=== PATIENT | male | born 1940 | race Caucasian/White ===

== ENCOUNTER 2016-11-03 04:25 | Inpatient (IN) | payer MEDICARE, OTHER ==
--- NOTE | ~2016-11-03 | HP ---
History And Physical [address] [place]. [address] NAME: GAYLE CLARK : 42 STATUS : ADM Camacho PAT#: [id number] AGE: 76 ADM/REG DATE : 11/03/16 MR#: [id number] REPORT SERV DATE: 11/03/16 DICTATED BY: LALITA SMITH DATE: 11/03/16 REPORT STATUS : Draft TRANSCRIBED BY: MODL DATE: 11/03/16 DATE OF ADMISSION: 11/03/2016 CHIEF COMPLAINT: Chest pain. HISTORY OF PRESENT ILLNESS: The patient is a 76-year-old male with known coronary artery disease with previous cardiac stenting, who presented to the emergency department with complaints of chest discomfort earlier in the day. He presented to the wee hours of the following morning. His initial EKG was unremarkable with no significant ST elevation or depression. Several hours later, the patient began to experience more severe chest discomfort. A repeat EKG was performed, which demonstrated marked inferior ST-segment elevation. The Code STEMI protocol was activated and the patient was brought emergently to cardiac catheterization laboratory. Prior to transfer, the patient received aspirin and intravenous heparin bolus. By the time of arrival in the catheterization laboratory, the patient had resolution of his chest discomfort. PAST MEDICAL HISTORY: 1. Coronary artery disease with previous stenting to diagonal branch of LAD and reportedly to PDA of RCA. 2. COPD. 3. Peripheral arterial disease - specifics unknown. 4. Obstructive sleep apnea, on CPAP. 5. Hypertension. 6. Hyperlipidemia. 7. Paroxysmal atrial fibrillation. 8. Chronic anticoagulation secondary to paroxysmal atrial fibrillation. 9. Chronic kidney disease. 10.Remote history of pulmonary embolism. ALLERGIES: TO PIPERACILLIN. SOCIAL HISTORY: Denies tobacco use for the last fourteen years. Prior to that time, smoked less than a pack of cigarettes per day for approximately forty years. Denies alcohol or illicit drug use. FAMILY HISTORY: Noncontributory. REVIEW OF SYSTEMS: Negative for all organ systems except per the history of present illness. PHYSICAL EXAMINATION: VITALS: Blood pressure 168/88, pulse 84, respirations 16 and unlabored. Weight 205 pounds. GENERAL: Elderly male in mild distress secondary to chest discomfort. HEENT: Normal. NECK: Supple, no JVD or bruit, normal carotid upstroke bilaterally, no thyromegaly. LUNGS: Clear to auscultation and percussion. No wheezes, rales or rhonchi. No use of History And Physical [address] [address] NAME: GAYLE CLARK : 42 STATUS : ADM Camacho PAT#: [id number] AGE: 76 ADM/REG DATE : 11/03/16 MR#: [id number] REPORT SERV DATE: 11/03/16 DICTATED BY: LALITA SMITH DATE: 11/03/16 REPORT STATUS : Draft TRANSCRIBED BY: JULITO DATE: 11/03/16 accessory muscles. CARDIOLOGY: Regular rhythm, normal S1, S2, no thrill, no murmur, rubs or gallops, normal PMI. ABDOMEN: Bowel sounds positive, soft, nontender, and nondistended. No masses or aortic bruits. No hepatosplenomegaly or hepatojugular reflux. EXTREMITIES: No edema. Normal pulses. No clubbing or cyanosis. SKIN: Warm and dry, no significant rash. NEUROLOGIC: Alert and oriented x 3. Appropriate mood. EKG: Initial electrocardiogram on presentation in the emergency department, sinus rhythm. Otherwise, unremarkable. Subsequent EKG this morning with [address]-segment elevation in the inferior leads consistent with acute inferior wall ST-segment elevation myocardial infarction, the underlying rhythm, sinus. LABORATORIES: Initial troponin negative. Creatinine 1.6 and otherwise no significant abnormalities. IMPRESSION: Acute inferior wall ST-segment elevation myocardial infarction. The patient is received emergently cardiac catheterization laboratory for angiography and intervention as indicated. See details of catheterization and intervention under separate report. In summary, the patient was found to have a flow limiting lesions in the proximal RCA and proximal posterior descending artery of the RCA. Underwent stenting with a total of three drug-eluting stents, two to the PDA, and one to the proximal RCA. No complications during the procedure. The patient was admitted to Cardiac Intensive Care Unit for post myocardial infarction management. BRYSON/JULITO Polly Smith M.D. / [id number] CC: Reta Perry, MSN, PAYABLE REPRESENTATIVE-BC
[2016-11-03 03:51] LABS: BASOPHILS 0.1 %; BASOPHILS ABSOLUTE 0.01 10/3/uL (0.0-0.16); EOSINOPHILS 4.6 %; EOSINOPHILS ABSOLUTE 0.45 10/3/uL (0.0-0.53); ER CBC TAT 0 Hrs 02 Mins; HEMATOCRIT 44.3 % (40.0-51.0); HEMOGLOBIN 15.3 g/dL (13.6-17.8); IMMATURE GRANULOCYTES 0.6 %; IMMATURE GRANULOCYTES ABSOLUTE 0.06 10/3/uL (0.0-0.11); LYMPHOCYTES 12.4 %; LYMPHOCYTES ABSOLUTE 1.21 10/3/uL (0.67-4.30); MEAN CORPUS HGB CONC 34.5 g/dL (32.0-36.0); MEAN CORPUSCULAR HEMOGLOB 32.8 pg (26.0-34.0); MEAN CORPUSCULAR VOLUME 95.1 fL (80-100); MEAN PLATELET VOLUME 9.4 fL (9.2-13.0); MONOCYTES 7.6 %; MONOCYTES ABSOLUTE 0.74 10/3/uL (0.21-1.20); NEUTROPHILS 74.7 %; NEUTROPHILS ABSOLUTE 7.29 10/3/uL (2.02-8.40); PLATELET COUNT 219 10/3/uL (150-400); RBC DISTRIBUTION WIDTH 12.5 % (12.0-16.0); RED CELL COUNT 4.66 10/6/uL (4.7-6.1); WHITE BLOOD CELLS 9.8 10/3/uL (4.5-10.5)
[2016-11-03 03:52] LABS: MANUAL DIFF NO %
[2016-11-03 03:59] LABS: INTERNATIONAL NORMAL RATI 2.3 UNITS (-); PARTIAL THROMBO TIME 36.4 SEC (22.5-37.2)
[2016-11-03 04:08] LABS: BUN (BLOOD UREA NITROGEN) 24 MG/DL (6-23); CALCIUM, SERUM 8.1 MG/DL (8.5-10.4); CHEST PAIN PROFILE TAT 0 Hrs 19 Mins; CHLORIDE, SERUM 108 MMOL/L (96-112); CO2 (CARBON DIOXIDE) 30 MMOL/L (24-34); CREATININE 1.68 MG/DL (0.70-1.30); GFR AFRICAN AMERICAN 46 ML/MIN (>=60); GFR NON AFRICAN AMERICAN 39 ML/MIN (>=60); GLUCOSE, SERUM 126 MG/DL (60-99); POTASSIUM, SERUM 4.1 MMOL/L (3.5-5.3); SODIUM, SERUM 138 MMOL/L (135-148); TROPONIN I 0.14 NG/ML (<0.05)
[~2016-11-03 04:25] MED LIST: AMIT100 PO; AMIT50 PO; AMITRIPTYLIN150 MG PO; ASA5GR PO; ASAB PO; C5 PO; COREG25 PO; COUMADIN3 MG PO; FLAG500TAB PO; FLEX PO; IMDUR30 PO; ISOSORB DIN30 MG PO; KLONO1 PO; KLOR-CON 1010 MEQ PO; L20 PO; LAN125 PO; LEXAPRO5 MG PO; LINZESS 290 M290 MCG PO; LOP25 PO; LORTAB 5 PO; LOVENOX; METAMUCIL CAN7 OZ PO; MEVACOR40 MG PO; NEXIUM40 PO; NIACIN 500 PO; NIACIN TR1000 MG PO; NIACOR500 MG PO; NITROQUICK0.4 MG SL; NORV5 PO; P20 PO; PLAVIX PO; PRAVACHOL40 MG PO; PRIN10 PO; RANITIDINE300 MG PO; SKELAXIN8 PO; SLO-NIACIN500 MG PO; SPIRIVA INH; SYSTANE OP; TRAZ100 PO; TRAZ50 PO; VANCOCIN HCL125 MG PO; VENTOLIN HFA INH; VITAMIN B-121000 MC1 SL; VITAMIN D1000 UNI1 PO; X25 PO; XANAX XR1 MG PO; XARELTO20 MG PO
[2016-11-03 07:47] LABS: BASOPHILS 0.1 %; BASOPHILS ABSOLUTE 0.01 10/3/uL (0.0-0.16); EOSINOPHILS 2.5 %; EOSINOPHILS ABSOLUTE 0.27 10/3/uL (0.0-0.53); HEMATOCRIT 45.5 % (40.0-51.0); HEMOGLOBIN 15.8 g/dL (13.6-17.8); IMMATURE GRANULOCYTES 0.5 %; IMMATURE GRANULOCYTES ABSOLUTE 0.06 10/3/uL (0.0-0.11); LYMPHOCYTES 15.5 %; MANUAL DIFF NO %; MEAN CORPUS HGB CONC 34.7 g/dL (32.0-36.0); MEAN CORPUSCULAR HEMOGLOB 32.8 pg (26.0-34.0); MEAN CORPUSCULAR VOLUME 94.6 fL (80-100); MEAN PLATELET VOLUME 9.4 fL (9.2-13.0); MONOCYTES 5.7 %; MONOCYTES ABSOLUTE 0.62 10/3/uL (0.21-1.20); NEUTROPHILS 75.7 %; NEUTROPHILS ABSOLUTE 8.28 10/3/uL (2.02-8.40); PLATELET COUNT 213 10/3/uL (150-400); RBC DISTRIBUTION WIDTH 12.4 % (12.0-16.0); RED CELL COUNT 4.81 10/6/uL (4.7-6.1); WHITE BLOOD CELLS 10.9 10/3/uL (4.5-10.5)
[2016-11-03 08:04] LABS: BUN (BLOOD UREA NITROGEN) 24 MG/DL (6-23); CALCIUM, SERUM 8.8 MG/DL (8.5-10.4); CHLORIDE, SERUM 108 MMOL/L (96-112); CHOLESTEROL 111 MG/DL (< 200); CO2 (CARBON DIOXIDE) 30 MMOL/L (24-34); CREATININE 1.63 MG/DL (0.70-1.30); GFR AFRICAN AMERICAN 47 ML/MIN (>=60); GFR NON AFRICAN AMERICAN 41 ML/MIN (>=60); GLUCOSE, SERUM 109 MG/DL (60-99); HDL CHOLESTEROL 37 MG/DL (> 39); LDL CHOLESTEROL 59 MG/DL (< 130); NON-HDL CHOLESTEROL 74 MG/DL (< 160); POTASSIUM, SERUM 4.5 MMOL/L (3.5-5.3); SODIUM, SERUM 142 MMOL/L (135-148); TRIGLYCERIDE 76 MG/DL (< 150)
[2016-11-03 08:05] LABS: TROPONIN I 0.76 NG/ML (<0.05)
[2016-11-03] MEDS ORDERED: XARELTO20 MG PO (10:47)
[2016-11-03] MEDS ORDERED: IMDUR30 PO (10:47)
[2016-11-03] MEDS ORDERED: NORV5 PO (10:48)
[2016-11-03] MEDS ORDERED: COREG12 PO (10:48)
[2016-11-03] MEDS ORDERED: AMITRIPTYLIN150 MG PO (10:48)
[2016-11-03] MEDS ORDERED: VITAMIN D1000 UNI1 PO (10:49)
[2016-11-03] MEDS ORDERED: FLONASE NAS (10:49)
[2016-11-03] MEDS ORDERED: PROAIR HFA INH (10:49)
[2016-11-03] MEDS ORDERED: 8 HOUR650 MG PO (10:49)
[2016-11-03] MEDS ORDERED: MEVACOR40 MG PO (10:49)
[2016-11-03 12:18] LABS: CKMB INDEX (NOT ORD) 8.4
[2016-11-03 12:19] LABS: TROPONIN I 2.05 NG/ML (<0.05)
[2016-11-03 19:40] LABS: CK-MB 8.7 NG/ML
[2016-11-04 02:29] LABS: BASOPHILS 0.1 %; BASOPHILS ABSOLUTE 0.01 10/3/uL (0.0-0.16); EOSINOPHILS 3.3 %; EOSINOPHILS ABSOLUTE 0.32 10/3/uL (0.0-0.53); HEMATOCRIT 43.2 % (40.0-51.0); HEMOGLOBIN 14.7 g/dL (13.6-17.8); IMMATURE GRANULOCYTES 0.6 %; IMMATURE GRANULOCYTES ABSOLUTE 0.06 10/3/uL (0.0-0.11); LYMPHOCYTES 12.4 %; LYMPHOCYTES ABSOLUTE 1.21 10/3/uL (0.67-4.30); MEAN CORPUSCULAR HEMOGLOB 32.6 pg (26.0-34.0); MEAN CORPUSCULAR VOLUME 95.8 fL (80-100); MEAN PLATELET VOLUME 9.4 fL (9.2-13.0); MONOCYTES 9.4 %; MONOCYTES ABSOLUTE 0.92 10/3/uL (0.21-1.20); NEUTROPHILS 74.2 %; NEUTROPHILS ABSOLUTE 7.26 10/3/uL (2.02-8.40); PLATELET COUNT 205 10/3/uL (150-400); RBC DISTRIBUTION WIDTH 12.6 % (12.0-16.0); RED CELL COUNT 4.51 10/6/uL (4.7-6.1); WHITE BLOOD CELLS 9.8 10/3/uL (4.5-10.5)
[2016-11-04 02:30] LABS: MANUAL DIFF NO %
[2016-11-04 02:43] LABS: CALCIUM, SERUM 8.7 MG/DL (8.5-10.4); CHLORIDE, SERUM 107 MMOL/L (96-112); CK-MB 6.4 NG/ML; CO2 (CARBON DIOXIDE) 30 MMOL/L (24-34); CPK 69 U/L (0-200); CREATININE 1.38 MG/DL (0.70-1.30); GFR AFRICAN AMERICAN 58 ML/MIN (>=60); GFR NON AFRICAN AMERICAN 50 ML/MIN (>=60); GLUCOSE, SERUM 109 MG/DL (60-99); POTASSIUM, SERUM 4.2 MMOL/L (3.5-5.3); SODIUM, SERUM 140 MMOL/L (135-148)
[2016-11-04 02:53] LABS: BUN (BLOOD UREA NITROGEN) 19 MG/DL (6-23); CHOLESTEROL 86 MG/DL (< 200); CKMB INDEX (NOT ORD) 9.3; HDL CHOLESTEROL 29 MG/DL (> 39); LDL CHOLESTEROL 36 MG/DL (< 130); NON-HDL CHOLESTEROL 57 MG/DL (< 160); TRIGLYCERIDE 105 MG/DL (< 150)
[2016-11-05 05:53] LABS: BASOPHILS 0.1 %; BASOPHILS ABSOLUTE 0.01 10/3/uL (0.0-0.16); EOSINOPHILS 4.5 %; EOSINOPHILS ABSOLUTE 0.45 10/3/uL (0.0-0.53); HEMATOCRIT 40.4 % (40.0-51.0); HEMOGLOBIN 13.6 g/dL (13.6-17.8); IMMATURE GRANULOCYTES 0.8 %; IMMATURE GRANULOCYTES ABSOLUTE 0.08 10/3/uL (0.0-0.11); LYMPHOCYTES 16.5 %; LYMPHOCYTES ABSOLUTE 1.65 10/3/uL (0.67-4.30); MEAN CORPUS HGB CONC 33.7 g/dL (32.0-36.0); MEAN CORPUSCULAR HEMOGLOB 32.5 pg (26.0-34.0); MEAN CORPUSCULAR VOLUME 96.7 fL (80-100); MONOCYTES 10.8 %; MONOCYTES ABSOLUTE 1.08 10/3/uL (0.21-1.20); NEUTROPHILS 67.3 %; NEUTROPHILS ABSOLUTE 6.71 10/3/uL (2.02-8.40); PLATELET COUNT 200 10/3/uL (150-400); RBC DISTRIBUTION WIDTH 12.8 % (12.0-16.0); RED CELL COUNT 4.18 10/6/uL (4.7-6.1)
[2016-11-05 05:55] LABS: MANUAL DIFF NO %
[2016-11-05 06:05] LABS: CALCIUM, SERUM 8.4 MG/DL (8.5-10.4); CHLORIDE, SERUM 106 MMOL/L (96-112); CO2 (CARBON DIOXIDE) 27 MMOL/L (24-34); CREATININE 1.78 MG/DL (0.70-1.30); GFR AFRICAN AMERICAN 43 ML/MIN (>=60); GFR NON AFRICAN AMERICAN 37 ML/MIN (>=60); GLUCOSE, SERUM 91 MG/DL (60-99); SODIUM, SERUM 141 MMOL/L (135-148)
[2016-11-05 06:19] LABS: BUN (BLOOD UREA NITROGEN) 31 MG/DL (6-23)
[2016-11-05] MEDS ORDERED: HALF81 PO (08:08)
[2016-11-05] MEDS ORDERED: PLAVIX PO (08:09)
[2016-11-05] MEDS ORDERED: NITROSTAT0.4 MG SL (08:09)
[2016-11-05] MEDS ORDERED: LIPITOR40 PO (08:09)
[2016-11-05] MEDS ORDERED: JANTOVEN5 MG PO (08:10)
== END 2016-11-05 11:07 | disposition home or self-care (01) | DRG 247 ==
LOC: ER 04:25 → CDU1 05:45 → SSU2 07:45 → CCU 09:10 → 5NO 11-04 15:02
PROVIDERS: Clinical Nurse Specialist; Internal Medicine Cardiovascular Disease; Nurse Practitioner Family
PROC: 4A023N7 Measurement of Cardiac Sampling and Pressure, Left Heart, Percutaneous Approach (ICD-10-PCS; principal; 2016-11-03)
PROC: 027136Z Dilation of Coronary Artery, Two Arteries with Three Drug-eluting Intraluminal Devices, Percutaneous Approach (ICD-10-PCS; 2016-11-03)
PROC: B2111ZZ Fluoroscopy of Multiple Coronary Arteries using Low Osmolar Contrast (ICD-10-PCS; 2016-11-03)
DX: I21.19 ST elevation (STEMI) myocardial infarction involving other coronary artery of inferior wall (principal); Z99.81 Dependence on supplemental oxygen; I48.0 Paroxysmal atrial fibrillation; I25.10 Atherosclerotic heart disease of native coronary artery without angina pectoris; E78.5 Hyperlipidemia, unspecified; I12.9 Hypertensive chronic kidney disease with stage 1 through stage 4 chronic kidney disease, or unspecified chronic kidney disease; N18.3 Chronic kidney disease, stage 3 (moderate); J44.9 Chronic obstructive pulmonary disease, unspecified; Z95.5 Presence of coronary angioplasty implant and graft; I73.9 Peripheral vascular disease, unspecified; G47.33 Obstructive sleep apnea (adult) (pediatric); Z79.01 Long term (current) use of anticoagulants; Z86.711 Personal history of pulmonary embolism; Z87.891 Personal history of nicotine dependence
CPT/HCPCS: 71010; 80048; 80061; 82550; 82553; 82565; 83690; 83735; 83880; 84484; 85025; 85347; 85610; 85730; 87641; 93005; 93458; 96374; 96375; 99152; 99153; 99285; A9270-GY; C1725; C1769; C1874; C1887; C1894; C8929; C9606; J0583; J2250; J2405; J3010; Q9957; Q9967

== ENCOUNTER 2016-11-07 22:38 | Observation (INO) | payer MEDICARE, OTHER ==
--- NOTE | ~2016-11-07 | HP ---
History And Physical [address] [place]. [address] NAME: GAYLE CLARK : 42 STATUS : ADM Camacho PAT#: [id number] AGE: 76 ADM/REG DATE : 11/07/16 MR#: [id number] REPORT SERV DATE: 11/08/16 DICTATED BY: LALITA SMITH DATE: 11/08/16 REPORT STATUS : Draft TRANSCRIBED BY: MODL DATE: 11/08/16 DATE OF ADMISSION: 11/07/2016 CHIEF COMPLAINT: Right lower extremity and groin pain. HISTORY OF PRESENT ILLNESS: The patient is a 76-year-old male, admitted on 11/03/2016 for acute inferior wall ST-segment elevation myocardial infarction. The patient was transferred emergently to cardiac catheterization laboratory, who was found to have severe disease in the proximal RCA and posterior descending artery of the right coronary artery. A stent was noted to be patent to the diagonal branch of the LAD. The patient had an uncomplicated post myocardial infarction course and was discharged home. He reported to ER last evening with complaints of right lower extremity swelling and pain involving the groin. This began on the evening prior to admission. The patient denies any fevers and chills. He denies chest pain, presyncope, or syncope. PAST MEDICAL HISTORY: 1. Coronary artery disease with remote stenting to the diagonal branch to the LAD and posterior descending artery of the RCA. a. Acute inferior wall myocardial infarction, 11/03/2016, with placement of a drug-eluting stent in the proximal RCA and two overlapping stents in the PDA. 2. COPD. 3. Peripheral artery disease - specifics unknown. 4. Obstructive sleep apnea, on CPAP. 5. Hypertension. 6. Hyperlipidemia. 7. Paroxysmal atrial fibrillation. 8. Chronic anticoagulation secondary to paroxysmal atrial fibrillation. 9. Chronic kidney disease. 10.Remote history of pulmonary embolism. ALLERGIES: PIPERACILLIN. SOCIAL HISTORY: The patient denies tobacco use for the last fourteen years. Prior to that time, the patient has smoked less than one pack of cigarettes per day for approximately forty years. Denies previous or current alcohol or illicit drug use. FAMILY HISTORY: Noncontributory. REVIEW OF SYSTEMS: Negative for all organ systems except per the history of present illness. PHYSICAL EXAMINATION: PHYSICAL EXAMINATION: VITALS: Blood pressure ranging from 126/66 to 163/78, pulse 62, respirations 12 and unlabored, saturating 96% on 2 L nasal cannula. History And Physical [address] [address] NAME: GAYLE CLARK : 42 STATUS : ADM Camacho PAT#: [id number] AGE: 76 ADM/REG DATE : 11/07/16 MR#: [id number] REPORT SERV DATE: 11/08/16 DICTATED BY: LALITA SMITH DATE: 11/08/16 REPORT STATUS : Draft TRANSCRIBED BY: MODCaesar DATE: 11/08/16 GENERAL: Elderly male, in no acute distress. HEENT: Normal. NECK: Supple, no JVD or bruit, normal carotid upstroke bilaterally, no thyromegaly. LUNGS: Clear to auscultation and percussion. No wheezes, rales or rhonchi. No use of accessory muscles. CARDIOLOGY: Regular rhythm, normal S1, S2, no thrill, no murmur, rubs or gallops, normal PMI. ABDOMEN: Bowel sounds positive, soft, nontender, and nondistended. No masses or aortic bruits. No hepatosplenomegaly or hepatojugular reflux. EXTREMITIES: Ecchymosis to the groin and the right lower extremity. Small to medium palpable hematoma noted. Distal pulses are intact. SKIN: Warm and dry, no significant rash. NEUROLOGIC: Alert and oriented x 3. Appropriate mood. LABORATORY DATA: WBC 9.1, hemoglobin 12.6, hematocrit 37.7, and platelets 230,000. Sodium 142, potassium 4.4, chloride 107, CO2 of 28, BUN 24, creatinine 1.68, glucose 100. Ultrasound of the lower extremity with no evidence of DVT. Groin ultrasound with evidence of large pseudoaneurysm. IMPRESSION: 1. Pseudoaneurysm of the right groin - recent myocardial infarction. On dual anti- platelet therapy as well as anticoagulation with warfarin due to paroxysmal atrial fibrillation. Continue aspirin and Plavix. Given recent stents, we will hold warfarin. Notably, warfarin is subtherapeutic at 1.3. Vascular consultation for consideration for thrombin injection for pseudoaneurysm. 2. Coronary artery disease - no anginal symptoms. Continue cardiac medications. 3. Hyperlipidemia - continue atorvastatin. CSL/MODL Polly Smith M.D. / [id number] CC: Goyo Marrufo M.D., Ph.D, F.A.AMELIA MELVIN
[~2016-11-07 22:38] MED LIST changes: +8 HOUR650 MG PO; +COREG12 PO; +FLONASE NAS; +HALF81 PO; +JANTOVEN5 MG PO; +LIPITOR40 PO; +NITROSTAT0.4 MG SL; +PROAIR HFA INH
[2016-11-07 23:16] LABS: BASOPHILS 0.1 %; BASOPHILS ABSOLUTE 0.01 10/3/uL (0.0-0.16); EOSINOPHILS 4.5 %; EOSINOPHILS ABSOLUTE 0.41 10/3/uL (0.0-0.53); HEMATOCRIT 37.7 % (40.0-51.0); HEMOGLOBIN 12.6 g/dL (13.6-17.8); IMMATURE GRANULOCYTES ABSOLUTE 0.09 10/3/uL (0.0-0.11); LYMPHOCYTES 16.8 %; LYMPHOCYTES ABSOLUTE 1.53 10/3/uL (0.67-4.30); MEAN CORPUS HGB CONC 33.4 g/dL (32.0-36.0); MEAN CORPUSCULAR HEMOGLOB 31.7 pg (26.0-34.0); MEAN CORPUSCULAR VOLUME 94.7 fL (80-100); MEAN PLATELET VOLUME 9.5 fL (9.2-13.0); MONOCYTES 10.2 %; MONOCYTES ABSOLUTE 0.93 10/3/uL (0.21-1.20); NEUTROPHILS 67.4 %; NEUTROPHILS ABSOLUTE 6.14 10/3/uL (2.02-8.40); PLATELET COUNT 230 10/3/uL (150-400); RBC DISTRIBUTION WIDTH 12.7 % (12.0-16.0); RED CELL COUNT 3.98 10/6/uL (4.7-6.1); WHITE BLOOD CELLS 9.1 10/3/uL (4.5-10.5)
[2016-11-07 23:22] LABS: MANUAL DIFF NO %
[2016-11-07 23:25] LABS: PARTIAL THROMBO TIME 34.3 SEC (22.5-37.2)
[2016-11-07 23:26] LABS: INTERNATIONAL NORMAL RATI 1.3 UNITS (-)
[2016-11-07 23:28] LABS: BUN (BLOOD UREA NITROGEN) 24 MG/DL (6-23); CALCIUM, SERUM 8.5 MG/DL (8.5-10.4); CHLORIDE, SERUM 107 MMOL/L (96-112); CO2 (CARBON DIOXIDE) 28 MMOL/L (24-34); CREATININE 1.68 MG/DL (0.70-1.30); GFR AFRICAN AMERICAN 46 ML/MIN (>=60); GFR NON AFRICAN AMERICAN 39 ML/MIN (>=60); GLUCOSE, SERUM 100 MG/DL (60-99); POTASSIUM, SERUM 4.4 MMOL/L (3.5-5.3); SODIUM, SERUM 142 MMOL/L (135-148)
[2016-11-07 23:33] LABS: PROTIME (NOT ORD) 15.9 SEC (12.0-14.5)
[2016-11-08 05:51] LABS: BUN (BLOOD UREA NITROGEN) 23 MG/DL (6-23); CALCIUM, SERUM 8.3 MG/DL (8.5-10.4); CHLORIDE, SERUM 109 MMOL/L (96-112); CO2 (CARBON DIOXIDE) 27 MMOL/L (24-34); CREATININE 1.56 MG/DL (0.70-1.30); GFR AFRICAN AMERICAN 50 ML/MIN (>=60); GFR NON AFRICAN AMERICAN 43 ML/MIN (>=60); GLUCOSE, SERUM 106 MG/DL (60-99); POTASSIUM, SERUM 4.1 MMOL/L (3.5-5.3); SODIUM, SERUM 139 MMOL/L (135-148)
== END 2016-11-08 14:26 | disposition home or self-care (01) ==
LOC: ER 22:38 → 5NO 23:59
PROVIDERS: Hospitalist; Internal Medicine Cardiovascular Disease
DX: I21.3 ST elevation (STEMI) myocardial infarction of unspecified site (principal); I25.10 Atherosclerotic heart disease of native coronary artery without angina pectoris; I48.0 Paroxysmal atrial fibrillation; I73.9 Peripheral vascular disease, unspecified; I12.9 Hypertensive chronic kidney disease with stage 1 through stage 4 chronic kidney disease, or unspecified chronic kidney disease; N18.9 Chronic kidney disease, unspecified; E78.5 Hyperlipidemia, unspecified; J44.9 Chronic obstructive pulmonary disease, unspecified; G47.33 Obstructive sleep apnea (adult) (pediatric); F17.210 Nicotine dependence, cigarettes, uncomplicated; Z99.89 Dependence on other enabling machines and devices; Z86.711 Personal history of pulmonary embolism; Z88.1 Allergy status to other antibiotic agents; Z79.82 Long term (current) use of aspirin; Z79.02 Long term (current) use of antithrombotics/antiplatelets; Z79.01 Long term (current) use of anticoagulants; Z79.899 Other long term (current) drug therapy
CPT/HCPCS: 80048; 82962; 83735; 85025; 85610; 85730; 93005; 93926; 93971; 99285; G0378

== ENCOUNTER 2016-11-13 13:19 | Inpatient (IN) | payer MEDICARE, OTHER ==
--- NOTE | ~2016-11-13 | CN ---
Consultation Report [id number] [facility] [place]. [address] NAME: GAYLE CLARK : 42 STATUS : ADM IN [facility]#: [id number] AGE: 76 ADM/REG DATE : 11/13/16 MR#: [id number] REPORT SERV DATE: 11/14/16 DICTATED BY: JUANJO NINO DATE: 11/14/16 REPORT STATUS : Draft TRANSCRIBED BY: MODCaesar DATE: 11/14/16 INPATIENT CONSULT DATE OF CONSULTATION: HISTORY OF PRESENT ILLNESS: This is a 76-year-old man whom I am asked to evaluate for "dysphagia." He is known to me from prior evaluation for numerous GI issues including GERD, chronic esophageal symptoms, and IBS with constipation. He was admitted with a STEMI. He has required three additional coronary stents and he is now on Brilinta. He has been on solid food. With breakfast yesterday and today, he noticed some regurgitation. It was Latvian toast yesterday and some scrambled eggs today. Since then, he has had no difficulty eating and he tolerated baked chicken this afternoon. He had no true dysphagia. We are asked to evaluate him. He is not, of note, been on any of his chronic GI medications for his esophagus. PAST MEDICAL HISTORY: 1. GERD. 2. History of adenomatous colon polyps. 3. IBS with constipation. 4. C. difficile colitis in 2012. 5. Hypertension. 6. Coronary artery disease. 7. COPD. 8. Peripheral vascular disease. 9. DJD. 10.Left renal artery stenosis with a nonfunctioning kidney. 11.Chronic kidney disease. 12.BPH. 13.Bladder cancer in 2008. 14.Nonfunctioning left adrenal adenoma. 15.Vascular headaches. 16.Hyperlipidemia. 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 18.Obstructive sleep apnea. 19.Deep venous thrombosis, right hand. 20.Peripheral neuropathy. 21.B12 deficiency. PAST SURGICAL HISTORY: Status post TURP, status post cholecystectomy, status post appendectomy, status post right inguinal hernia repair, status post lumbar disk surgery, status post percutaneous coronary intervention with now a total of seven stents, status post right iliac stenting, status post carotid subclavian bypass, status post TURBT. Consultation Report [id number] [facility] [place]. [address] NAME: GAYLE CLARK SANDEEP : 42 STATUS : ADM IN PAT#: [id number] AGE: 76 ADM/REG DATE : 11/13/16 MR#: [id number] REPORT SERV DATE: 11/14/16 DICTATED BY: JUANJO NINO. DATE: 11/14/16 REPORT STATUS : Draft TRANSCRIBED BY: MODL DATE: 11/14/16 MEDICATIONS: Elavil, Norvasc, aspirin, Lipitor, Coreg, vitamin E, Imdur, Brilinta. ALLERGIES: ZOSYN, LEXAPRO. FAMILY HISTORY: His father had lung cancer in his 70s. His mother had coronary artery disease. SOCIAL HISTORY: No current tobacco or alcohol. REVIEW OF SYSTEMS: Otherwise unremarkable. PHYSICAL EXAMINATION: GENERAL: He is resting comfortably in bed, in no acute distress. VITAL SIGNS: Afebrile. SKIN: Warm and dry. LUNGS: Clear. ABDOMEN: Soft, nontender. EXTREMITIES: No edema. LABORATORY DATA: Sodium 142, potassium 4.2, BUN 21, creatinine 1.58. Troponin is 13. White count normal. Hemoglobin normal. Last colonoscopy, February 2013, remarkable for internal hemorrhoids, diverticulosis, the small hepatic flexure polyp, which was removed. IMPRESSIONS: 1. Gastroesophageal reflux disease with some current symptoms are regurgitation, off medication. 2. ST elevation myocardial infarction. 3. Irritable bowel syndrome with constipation. 4. Adenomatous colon polyps. RECOMMENDATIONS: 1. Mechanical soft diet for now. 2. Protonix 40 mg twice daily. 3. Liquid Carafate 1 g three times a day. 4. Plan a surveillance colonoscopy in February 2018. 5. We will plan outpatient followup. 6. He is not currently a candidate for any endoscopic evaluation. The plan was discussed in detail with the patient and I will be available if needed. Consultation Report [address] [place] [facility] [address] NAME: GAYLE CLARK : 42 STATUS : ADM IN PAT#: [id number] AGE: 76 ADM/REG DATE : 11/13/16 MR#: [id number] REPORT SERV DATE: 11/14/16 DICTATED BY: JUANJO NINO DATE: 11/14/16 REPORT STATUS : Draft TRANSCRIBED BY: MODL DATE: 11/14/16 /JULITO Juanjo Nino M.D. / [id number] CC: Ibeth Spann Jr., DO
--- NOTE | ~2016-11-13 | HP ---
History And Physical [address] [place]. [address] NAME: GAYLE CLARK : 42 STATUS : ADM IN PAT#: [id number] AGE: 76 ADM/REG DATE : 11/13/16 MR#: [id number] REPORT SERV DATE: 11/13/16 DICTATED BY: OPHELIA OWENS JR. DATE: 11/13/16 REPORT STATUS : Draft TRANSCRIBED BY: MODCaesar DATE: 11/13/16 DATE OF ADMISSION: 11/13/2016 CHIEF COMPLAINT: Chest pain with ST-elevation IA. HISTORY OF PRESENT ILLNESS: Gayle is a 76-year-old white male with multivessel coronary artery disease. He had an inferior myocardial infarction on 11/03/2016 with drug-eluting stent placement to the PDA and proximal RCA. The patient had a pseudoaneurysm complicating this requiring readmission. It was small and managed medically by Dr. Tinoco. The patient was told to take aspirin and Plavix and withhold Xarelto and warfarin secondary to pseudoaneurysm. He was obviously very confused at home, but he has not taken aspirin or Plavix until yesterday when he called the office. I had a personal conversation with him prior to his last discharge concerning such. The patient developed new onset chest pain around 11:30 or 11:45 this morning, became progressive, prompting ER presentation. He had inferior ST elevation consistent with STEMI and a code STEMI protocol was done. PAST MEDICAL HISTORY: Includes coronary artery disease with multiple prior stenting to the diagonal and LAD branches. He had inferior IA on 11/03/2016 with proximal RCA and PDA, JAMIE stenting. He has peripheral vascular disease. He has obstructive sleep apnea, hypertension, mixed hyperlipidemia, paroxysmal atrial fibrillation. He has grade 3 chronic kidney disease. He has a distant history of pulmonary embolism. The patient quit smoking fourteen to fifteen years ago. He does not drink or use recreational drugs. FAMILY HISTORY: Negative for premature vascular events. REVIEW OF SYSTEMS: Include right groin soreness. He denies changes in bowel or bladder habits. He denies sudden weight gain or weight loss. Remainder as in HPI or negative. PHYSICAL EXAMINATION: VITAL SIGNS: Blood pressure is 150/72, heart rate 72, respirations 18. GENERAL: Elderly male, in mild distress, who appears more confused than anything. HEENT: Anicteric, no scleral injection, no oral lesions. NECK: No JVD, supple, no bruits. LUNGS: Clear to auscultation. No hyperexpansion. CARDIOVASCULAR: Regular rate and rhythm with no murmur, rub or gallop. ABDOMEN: Soft, nontender. Normoactive bowel sounds, no hepatosplenomegaly. EXTREMITIES: No clubbing, cyanosis or edema. Ecchymosis in the right groin and lower extremity with a palpable hematoma, no bruise. SKIN: No visible rashes. NEURO/PSY: Normal affect, alert and oriented x3. EKG: EKG reveals inferior ST elevation consistent with STEMI. MEDICAL DECISION MAKIN. Acute inferior ST-elevation myocardial infarction, most likely secondary to stent History And Physical [address] [address] NAME: GAYLE CLARK : 42 STATUS : ADM IN [facility]#: [id number] AGE: 76 ADM/REG DATE : 11/13/16 MR#: [id number] REPORT SERV DATE: 11/13/16 DICTATED BY: OPHELIA OWENS JR. DATE: 11/13/16 REPORT STATUS : Draft TRANSCRIBED BY: JULITO DATE: 11/13/16 thrombosis secondary to noncompliance with anti-platelet therapy. The patient will be taken emergently to the cardiac catheterization laboratory for coronary angiography and percutaneous intervention. The risks were verbally explained and verbally accepted secondary to the emergency nature of the procedure. 2. Extensive medication compliance and instruction counseling will be given prior to discharge. 3. Grade 3 chronic kidney disease. We will hydrate post procedure and follow renal function closely. 4. Mixed hyperlipidemia. The patient will continue intensive statin therapy. 5. Paroxysmal atrial fibrillation. We will most likely continue dual anti-platelet therapy for one month with the introduction of antithrombotic therapy after this with continued anti-platelet therapy. 6. Hypertension. We will adjust medicines as needed during the hospital stay. RACHELLE/DARIENL Ophelia Owens Jr., M.D. / [id number] CC: Ibeth Spann Jr., DO
[2016-11-13 13:40] LABS: BASOPHILS 0.1 %; BASOPHILS ABSOLUTE 0.01 10/3/uL (0.0-0.16); EOSINOPHILS 4.7 %; EOSINOPHILS ABSOLUTE 0.58 10/3/uL (0.0-0.53); HEMATOCRIT 39.2 % (40.0-51.0); HEMOGLOBIN 13.3 g/dL (13.6-17.8); IMMATURE GRANULOCYTES 0.9 %; IMMATURE GRANULOCYTES ABSOLUTE 0.11 10/3/uL (0.0-0.11); LYMPHOCYTES 11.3 %; LYMPHOCYTES ABSOLUTE 1.39 10/3/uL (0.67-4.30); MEAN CORPUS HGB CONC 33.9 g/dL (32.0-36.0); MEAN CORPUSCULAR VOLUME 94.2 fL (80-100); MEAN PLATELET VOLUME 9.3 fL (9.2-13.0); MONOCYTES 7.5 %; MONOCYTES ABSOLUTE 0.92 10/3/uL (0.21-1.20); NEUTROPHILS 75.5 %; NEUTROPHILS ABSOLUTE 9.26 10/3/uL (2.02-8.40); PLATELET COUNT 296 10/3/uL (150-400); RBC DISTRIBUTION WIDTH 12.8 % (12.0-16.0); RED CELL COUNT 4.16 10/6/uL (4.7-6.1); WHITE BLOOD CELLS 12.3 10/3/uL (4.5-10.5)
[2016-11-13 13:41] LABS: MANUAL DIFF NO %
[2016-11-13 13:52] LABS: INTERNATIONAL NORMAL RATI 1.2 UNITS (-); PARTIAL THROMBO TIME 30.6 SEC (22.5-37.2); PROTIME (NOT ORD) 14.8 SEC (12.0-14.5)
[2016-11-13 13:59] LABS: BUN (BLOOD UREA NITROGEN) 22 MG/DL (6-23); CALCIUM, SERUM 8.7 MG/DL (8.5-10.4); CHEST PAIN PROFILE TAT 0 Hrs 25 Mins; CHLORIDE, SERUM 105 MMOL/L (96-112); CO2 (CARBON DIOXIDE) 28 MMOL/L (24-34); CREATININE 1.72 MG/DL (0.70-1.30); GFR AFRICAN AMERICAN 44 ML/MIN (>=60); GFR NON AFRICAN AMERICAN 38 ML/MIN (>=60); GLUCOSE, SERUM 101 MG/DL (60-99); POTASSIUM, SERUM 4.1 MMOL/L (3.5-5.3); SODIUM, SERUM 139 MMOL/L (135-148); TROPONIN I 0.19 NG/ML (<0.05)
[2016-11-13 15:14] LABS: CK-MB 1.4 NG/ML; CPK 84 U/L (0-200)
[2016-11-13 21:49] LABS: CK-MB 32.4 NG/ML
[2016-11-13 21:54] LABS: CKMB INDEX (NOT ORD) 10.2
[2016-11-14 05:56] LABS: BASOPHILS 0.2 %; BASOPHILS ABSOLUTE 0.02 10/3/uL (0.0-0.16); EOSINOPHILS 2.8 %; EOSINOPHILS ABSOLUTE 0.27 10/3/uL (0.0-0.53); HEMATOCRIT 35.4 % (40.0-51.0); HEMOGLOBIN 12.1 g/dL (13.6-17.8); IMMATURE GRANULOCYTES 0.6 %; IMMATURE GRANULOCYTES ABSOLUTE 0.06 10/3/uL (0.0-0.11); LYMPHOCYTES 8.1 %; LYMPHOCYTES ABSOLUTE 0.79 10/3/uL (0.67-4.30); MEAN CORPUS HGB CONC 34.2 g/dL (32.0-36.0); MEAN CORPUSCULAR HEMOGLOB 32.3 pg (26.0-34.0); MEAN CORPUSCULAR VOLUME 94.4 fL (80-100); MEAN PLATELET VOLUME 9.2 fL (9.2-13.0); MONOCYTES ABSOLUTE 0.58 10/3/uL (0.21-1.20); NEUTROPHILS 82.3 %; PLATELET COUNT 270 10/3/uL (150-400); RBC DISTRIBUTION WIDTH 12.9 % (12.0-16.0); RED CELL COUNT 3.75 10/6/uL (4.7-6.1); WHITE BLOOD CELLS 9.7 10/3/uL (4.5-10.5)
[2016-11-14 06:01] LABS: BUN (BLOOD UREA NITROGEN) 21 MG/DL (6-23); CALCIUM, SERUM 8.4 MG/DL (8.5-10.4); CHLORIDE, SERUM 108 MMOL/L (96-112); CHOL/HDL RATIO(NOT ORDER) 2.9 (0-5); CHOLESTEROL 80 MG/DL (< 200); CK-MB 24.7 NG/ML; CO2 (CARBON DIOXIDE) 27 MMOL/L (24-34); CPK 237 U/L (0-200); CREATININE 1.58 MG/DL (0.70-1.30); GFR AFRICAN AMERICAN 49 ML/MIN (>=60); GFR NON AFRICAN AMERICAN 42 ML/MIN (>=60); GLUCOSE, SERUM 101 MG/DL (60-99); HDL CHOLESTEROL 28 MG/DL (> 39); LDL CHOLESTEROL 34 MG/DL (< 130); MANUAL DIFF NO %; NON-HDL CHOLESTEROL 52 MG/DL (< 160); POTASSIUM, SERUM 4.2 MMOL/L (3.5-5.3); SODIUM, SERUM 142 MMOL/L (135-148); TRIGLYCERIDE 92 MG/DL (< 150)
[2016-11-14 06:03] LABS: CKMB INDEX (NOT ORD) 10.4
[2016-11-14 14:30] LABS: CK-MB 15.8 NG/ML
[2016-11-14 14:31] LABS: CKMB INDEX (NOT ORD) 9.3
[2016-11-15 04:27] LABS: BASOPHILS 0.1 %; BASOPHILS ABSOLUTE 0.01 10/3/uL (0.0-0.16); EOSINOPHILS 5.3 %; EOSINOPHILS ABSOLUTE 0.43 10/3/uL (0.0-0.53); HEMATOCRIT 36.7 % (40.0-51.0); HEMOGLOBIN 12.1 g/dL (13.6-17.8); IMMATURE GRANULOCYTES 0.9 %; IMMATURE GRANULOCYTES ABSOLUTE 0.07 10/3/uL (0.0-0.11); LYMPHOCYTES 14.5 %; LYMPHOCYTES ABSOLUTE 1.19 10/3/uL (0.67-4.30); MANUAL DIFF NO %; MEAN CORPUSCULAR HEMOGLOB 31.6 pg (26.0-34.0); MEAN CORPUSCULAR VOLUME 95.8 fL (80-100); MEAN PLATELET VOLUME 9.3 fL (9.2-13.0); MONOCYTES ABSOLUTE 0.74 10/3/uL (0.21-1.20); NEUTROPHILS 70.2 %; NEUTROPHILS ABSOLUTE 5.74 10/3/uL (2.02-8.40); PLATELET COUNT 263 10/3/uL (150-400); RBC DISTRIBUTION WIDTH 12.9 % (12.0-16.0); RED CELL COUNT 3.83 10/6/uL (4.7-6.1); WHITE BLOOD CELLS 8.2 10/3/uL (4.5-10.5)
[2016-11-15 04:41] LABS: BUN (BLOOD UREA NITROGEN) 22 MG/DL (6-23); CALCIUM, SERUM 8.2 MG/DL (8.5-10.4); CHLORIDE, SERUM 106 MMOL/L (96-112); CO2 (CARBON DIOXIDE) 28 MMOL/L (24-34); CREATININE 1.49 MG/DL (0.70-1.30); GFR AFRICAN AMERICAN 53 ML/MIN (>=60); GFR NON AFRICAN AMERICAN 46 ML/MIN (>=60); GLUCOSE, SERUM 88 MG/DL (60-99); SODIUM, SERUM 139 MMOL/L (135-148)
[2016-11-16 04:27] LABS: BASOPHILS 0.1 %; BASOPHILS ABSOLUTE 0.01 10/3/uL (0.0-0.16); EOSINOPHILS 5.1 %; EOSINOPHILS ABSOLUTE 0.45 10/3/uL (0.0-0.53); HEMATOCRIT 35.3 % (40.0-51.0); HEMOGLOBIN 12.3 g/dL (13.6-17.8); IMMATURE GRANULOCYTES ABSOLUTE 0.09 10/3/uL (0.0-0.11); LYMPHOCYTES 13.5 %; MEAN CORPUSCULAR HEMOGLOB 32.7 pg (26.0-34.0); MEAN CORPUSCULAR VOLUME 93.9 fL (80-100); MEAN PLATELET VOLUME 9.3 fL (9.2-13.0); MONOCYTES 8.7 %; MONOCYTES ABSOLUTE 0.77 10/3/uL (0.21-1.20); NEUTROPHILS 71.6 %; NEUTROPHILS ABSOLUTE 6.36 10/3/uL (2.02-8.40); PLATELET COUNT 243 10/3/uL (150-400); RBC DISTRIBUTION WIDTH 12.9 % (12.0-16.0); RED CELL COUNT 3.76 10/6/uL (4.7-6.1); WHITE BLOOD CELLS 8.9 10/3/uL (4.5-10.5)
[2016-11-16 04:32] LABS: MANUAL DIFF NO %; MEAN CORPUS HGB CONC 34.8 g/dL (32.0-36.0)
[2016-11-16 04:44] LABS: BUN (BLOOD UREA NITROGEN) 23 MG/DL (6-23); CALCIUM, SERUM 8.4 MG/DL (8.5-10.4); CHLORIDE, SERUM 106 MMOL/L (96-112); CO2 (CARBON DIOXIDE) 27 MMOL/L (24-34); CREATININE 1.75 MG/DL (0.70-1.30); GFR AFRICAN AMERICAN 43 ML/MIN (>=60); GFR NON AFRICAN AMERICAN 38 ML/MIN (>=60); GLUCOSE, SERUM 95 MG/DL (60-99); POTASSIUM, SERUM 3.6 MMOL/L (3.5-5.3); SODIUM, SERUM 140 MMOL/L (135-148)
[2016-11-16] MEDS ORDERED: PROTONIX PO (09:27)
[2016-11-16] MEDS ORDERED: BRILINTA90 MG PO (09:27)
[2016-11-16] MEDS ORDERED: SENTAB PO (09:28)
[2016-11-16] MEDS ORDERED: SUCR PO (09:28)
== END 2016-11-16 11:54 | disposition home or self-care (01) | DRG 250 ==
LOC: ER 13:19 → SSU2 13:33 → CCU 14:26 → 5NO 11-15 10:55
PROVIDERS: Hospitalist; Internal Medicine Cardiovascular Disease
PROC: 4A023N7 Measurement of Cardiac Sampling and Pressure, Left Heart, Percutaneous Approach (ICD-10-PCS; principal; 2016-11-13)
PROC: 02703ZZ Dilation of Coronary Artery, One Artery, Percutaneous Approach (ICD-10-PCS; 2016-11-13)
PROC: B2111ZZ Fluoroscopy of Multiple Coronary Arteries using Low Osmolar Contrast (ICD-10-PCS; 2016-11-13)
PROC: B2151ZZ Fluoroscopy of Left Heart using Low Osmolar Contrast (ICD-10-PCS; 2016-11-13)
DX: T82.867A Thrombosis due to cardiac prosthetic devices, implants and grafts, initial encounter (principal); I21.11 ST elevation (STEMI) myocardial infarction involving right coronary artery; J44.9 Chronic obstructive pulmonary disease, unspecified; I48.0 Paroxysmal atrial fibrillation; R13.10 Dysphagia, unspecified; K21.9 Gastro-esophageal reflux disease without esophagitis; I12.9 Hypertensive chronic kidney disease with stage 1 through stage 4 chronic kidney disease, or unspecified chronic kidney disease; N18.3 Chronic kidney disease, stage 3 (moderate); I73.9 Peripheral vascular disease, unspecified; Z85.51 Personal history of malignant neoplasm of bladder; E78.5 Hyperlipidemia, unspecified; G47.33 Obstructive sleep apnea (adult) (pediatric); E53.8 Deficiency of other specified B group vitamins; Z90.49 Acquired absence of other specified parts of digestive tract; K58.1 Irritable bowel syndrome with constipation; Z86.010 Personal history of colon polyps; Z91.14 Patient's other noncompliance with medication regimen
CPT/HCPCS: 71010; 80048; 80061; 82550; 82553; 82565; 83735; 84484; 85025; 85610; 85730; 87641; 92941; 93005; 93458; 94640; 99152; 99153; 99285; A9270-GY; C1725; C1769; C1887; C1894; J0360; J0583; J2250; J3010; Q9967